=== PATIENT | female | born 1990 | race African-American/Black ===

== ENCOUNTER 2024-01-26 17:51 | Emergency (ER) | payer OTHER ==
[~2024-01-26] VITALS: Ht 167.6 cm; Wt 76.3 kg
[2024-01-26 17:52] VITALS: BP 133/81; TEMP 98.8; O2SAT 99
[2024-01-26] MEDS ORDERED: PRENTAB53 PO (18:04)
[2024-01-26] MEDS ORDERED: ASPI81CH48 PO (18:04)
[2024-01-26] MEDS ORDERED: FOLI1TAB11 PO (18:04)
[2024-01-26 19:16] LABS: MEAN CORPUSCULAR HEMOGLOBIN 30.1 pg (27.0-33.0); MEAN CORPUSCULAR HGB CONC 34.4 g/dl (32.0-36.5); MEAN CORPUSCULAR VOLUME 87.4 fl (80.0-96.0); PLATELET COUNT, AUTOMATED 332 10^3/uL (150-450); RED BLOOD COUNT 3.66 10^6/uL (4.00-5.40); WHITE BLOOD COUNT 7.8 10^3/uL (4.0-10.0)
[2024-01-26] MEDS ORDERED: MED REC IN PROGRESS XX SCH (22:00)
[2024-01-26] MEDS ORDERED: HOME MED LIST COMPLETE! XX SCH (23:05)
== END 2024-01-26 23:32 | disposition home or self-care (01) ==
LOC: M ED 17:51
DX: O20.8 Other hemorrhage in early pregnancy (principal); O30.001 Twin pregnancy, unspecified number of placenta and unspecified number of amniotic sacs, first trimester; Z3A.12 12 weeks gestation of pregnancy; Z87.59 Personal history of other complications of pregnancy, childbirth and the puerperium

== ENCOUNTER → 2024-05-13 | Outpatient (CLI) | payer OTHER ==
[~2024-05-13] MED LIST: ASPI81CH48 PO; FOLI1TAB11 PO; PRENTAB53 PO
[2024-05-13 13:33] LABS: HEMATOCRIT 32.1 % (36.0-47.0); HEMOGLOBIN 10.6 g/dl (12.0-15.5); MEAN CORPUSCULAR HEMOGLOBIN 31.5 pg (27.0-33.0); MEAN CORPUSCULAR VOLUME 95.3 fl (80.0-96.0); PLATELET COUNT, AUTOMATED 227 10^3/uL (150-450); RED BLOOD COUNT 3.37 10^6/uL (4.00-5.40); WHITE BLOOD COUNT 8.1 10^3/uL (4.0-10.0)
[2024-05-13 15:24] LABS: GC DNA AMPLIFICATION NEGATIVE (NEGATIVE)
== END ==
LOC: M PLALAB 08:38
PROVIDERS: ATTEND Specialist
DX: O30.042 Twin pregnancy, dichorionic/diamniotic, second trimester (principal); Z3A.00 Weeks of gestation of pregnancy not specified

== ENCOUNTER → 2024-06-06 | Outpatient (CLI) | payer OTHER | LOC: M RAD 15:03 | PROVIDERS: ATTEND Obstetrics & Gynecology | DX: O30.042 Twin pregnancy, dichorionic/diamniotic, second trimester (principal); Z3A.31 31 weeks gestation of pregnancy ==

== ENCOUNTER 2024-06-13 10:27 | Outpatient (CLI) | payer OTHER ==
[~2024-06-13] VITALS: Ht 165.1 cm; Wt 86.2 kg
[2024-06-13 10:51] VITALS: BP 83/45
[2024-06-13 10:52] VITALS: BP 82/49
[2024-06-13] MEDS ORDERED: HOME MED LIST COMPLETE! XX SCH (11:05)
== END 2024-06-13 12:05 | disposition home or self-care (01) ==
LOC: M LDO 10:27
PROVIDERS: ATTEND Specialist
DX: O36.8130 Decreased fetal movements, third trimester, not applicable or unspecified (principal); O30.043 Twin pregnancy, dichorionic/diamniotic, third trimester; O99.820 Streptococcus B carrier state complicating pregnancy; O09.213 Supervision of pregnancy with history of pre-term labor, third trimester; O99.213 Obesity complicating pregnancy, third trimester; O40.3XX0 Polyhydramnios, third trimester, not applicable or unspecified; E66.3 Overweight; Z3A.32 32 weeks gestation of pregnancy
CPT/HCPCS: 59025; 76815; G0463

== ENCOUNTER → 2024-07-02 | Outpatient (REF) | payer OTHER | LOC: M SFHCWAGY 12:47 | PROVIDERS: ATTEND Specialist | DX: O30.043 Twin pregnancy, dichorionic/diamniotic, third trimester (principal) ==

== ENCOUNTER → 2024-07-11 | Outpatient (CLI) | payer OTHER | LOC: M WHC 08:56 | PROVIDERS: ATTEND Specialist | DX: O30.043 Twin pregnancy, dichorionic/diamniotic, third trimester (principal); Z3A.36 36 weeks gestation of pregnancy ==

== ENCOUNTER → 2024-11-26 | Outpatient (CLI) | payer OTHER ==
[~2024-11-26] MED LIST changes: +ACET-683 PO; +COLA100C5 PO; +IBUP-1022 PO; +IBUP80TA PO; +OXYC-517 PO; +OXYC1TAB23 PO
== END ==
LOC: M WHC 08:59
PROVIDERS: ATTEND Specialist
DX: N63.10 Unspecified lump in the right breast, unspecified quadrant (principal); R92.323 Mammographic fibroglandular density, bilateral breasts
CPT/HCPCS: 76642; 77066; G0279

== ENCOUNTER → 2025-06-11 | Outpatient (CLI) | payer OTHER ==
[~2025-06-11] MED LIST changes: -IBUP-1022 PO; +IBUP600T42 PO
== END ==
LOC: M WHC 09:45
PROVIDERS: ATTEND Physician Assistant
DX: D24.1 Benign neoplasm of right breast (principal)

== ENCOUNTER → 2025-09-02 | Outpatient (CLI) | payer OTHER | LOC: M EKG 08:52 | PROVIDERS: ATTEND Surgery | DX: Z01.810 Encounter for preprocedural cardiovascular examination (principal) ==

== ENCOUNTER → 2025-09-02 | Outpatient (CLI) | payer OTHER ==
[2025-09-02 11:34] LABS: BASO # 0.1 10^3/uL (0.0-0.2); BASO % 1.1 % (0.0-1.0); EOS # 0.2 10^3/uL (0.0-0.5); EOS % 3.7 % (0.0-3.0); LYMPH # 1.3 10^3/uL (1.5-5.0); LYMPH % 28.5 % (24.0-44.0); MONO # 0.3 10^3/uL (0.0-0.8); MONO % 7.4 % (2.0-8.0); NEUTROPHILS # 2.7 10^3/uL (1.5-8.5); NEUTROPHILS % 59.1 % (36.0-66.0); PLATELET COUNT, AUTOMATED 393 10^3/uL (150-450)
[2025-09-02 12:00] LABS: CALCIUM LEVEL 9.1 MG/DL (8.5-10.1); CARBON DIOXIDE LEVEL 28 MMOL/L (20-31); CHLORIDE LEVEL 106 MMOL/L (98-107); CREATININE FOR GFR 0.87 MG/DL (0.55-1.30); GLOMERULAR FILTRATION RATE 89.1 (>60); HCG, SERUM QUALITATIVE NEGATIVE (NEGATIVE); POTASSIUM SERUM 3.9 MMOL/L (3.5-5.1); SODIUM LEVEL 144 MMOL/L (136-145)
== END ==
LOC: M PLALAB 08:02
PROVIDERS: ATTEND Surgery
DX: D24.1 Benign neoplasm of right breast (principal)

== ENCOUNTER → 2025-09-15 | Outpatient (CLI) | payer OTHER ==
[~2025-09-15] MED LIST changes: +GASTROGRAFIN SOLUTION 30 ML ONE
== END ==
LOC: M PLAIMG 11:43
PROVIDERS: ATTEND Surgery
DX: K42.9 Umbilical hernia without obstruction or gangrene (principal); M62.08 Separation of muscle (nontraumatic), other site; Z98.891 History of uterine scar from previous surgery

== ENCOUNTER 2025-09-18 07:03 | Day surgery (SDC) | payer OTHER ==
[~2025-09-18] VITALS: Ht 167.6 cm; Wt 79.7 kg
[~2025-09-18 07:03] MED LIST changes: -GASTROGRAFIN SOLUTION 30 ML ONE
[2025-09-18] MEDS ORDERED: LIDOCAINE 2% 100 MG/5 ML SDV (FOR ANES.) As Ordered ONE (07:16)
[2025-09-18] MEDS ORDERED: KETOROLAC 30 MG/ML 1 ML VIAL As Ordered ONE (07:16)
[2025-09-18] MEDS ORDERED: ONDANSETRON 4MG/2ML VIAL As Ordered ONE (07:17)
[2025-09-18] MEDS ORDERED: dexAMETHasone 4 MG/ML 1 ML VIAL As Ordered ONE (07:17)
[2025-09-18] MEDS ORDERED: MIDAZOLAM INJ 2 MG/2 ML VIAL As Ordered ONE (07:17)
[2025-09-18] MEDS: LR 1,000 ML IV SCH (07:50)
[2025-09-18] MEDS: ceFAZolin SOD 2 GM IV ONCE IV ONE (07:56)
[2025-09-18] MEDS ORDERED: ONDANSETRON 4MG/2ML VIAL IV PRN (09:10)
[2025-09-18] MEDS ORDERED: MORPHINE 2 MG/ML 1 ML VIAL IV PRN (09:10)
[2025-09-18] MEDS ORDERED: OXYC-517 PO ×2 (09:17→09:18)
[2025-09-18 09:57] VITALS: BP 128/69; TEMP 98; O2SAT 99
== END 2025-09-18 10:42 | disposition home or self-care (01) ==
LOC: M SDC 07:03
PROVIDERS: ATTEND Surgery
DX: D24.1 Benign neoplasm of right breast (principal); G47.30 Sleep apnea, unspecified
CPT/HCPCS: 19120; 81025; 88307; J0665; J0688; J1100; J1885; J2250; J2405; J3010